=== PATIENT | male | born 1970 | race Caucasian/White ===

== ENCOUNTER → 2019-10-02 | Outpatient (CLI) | payer OTHER ==
--- NOTE | 2019-10-02 16:00 | XR ---
EXAMINATION TYPE: XR chest 2V DATE OF EXAM: 10/02/2019 COMPARISON: NONE HISTORY: Chest pain TECHNIQUE: Frontal and lateral views of the chest are obtained. FINDINGS: There is right hilar fullness. This likely reflect superimposed vasculature however consider CT of th e chest to exclude underlying nodule. No evidence for pneumothorax. No pleural effusion. The cardiac silhouette size is within normal limits. The osseous structures are grossly intact. IMPRESSION: 1. There is right hilar fullness. This likely reflect superimposed vasculature however consider CT o f the chest to exclude underlying nodule.
== END | disposition home or self-care (01) ==
LOC: RADXRMAIN 12:35
PROVIDERS: ATTEND Nurse Practitioner Family
DX: R91.8 Other nonspecific abnormal finding of lung field (principal)
CPT/HCPCS: 71046

== ENCOUNTER → 2019-10-10 | Outpatient (CLI) | payer OTHER ==
[2019-10-10 18:22] LABS: African American GFR (CKD) >90 (>60 ml/min/1.73 sqM); Blood Urea Nitrogen 16 mg/dL (9-20); Non-African American GFR(CKD) >90 (>60 ml/min/1.73 sqM)
--- NOTE | 2019-10-10 22:52 | CT ---
EXAMINATION TYPE: CT chest w con DATE OF EXAM: 10/10/2019 COMPARISON: Prior chest x-ray October 02, 2019. HISTORY: abnormal cxr CT DLP: 551 mGycm. Automated Exposure Control for Dose Reduction was Utilized. TECHNIQUE: CT scan of the thorax is performed following with IV Contrast, patient injected with 100 mL of Isovue 300. FINDINGS: LUNGS: Some focal linear scarring and/or atelectasis in the lingula just above the diaphragm along wi th the medial portion of left lung base. Subpleural 3 to 4 mm nodule right lower lobe axial image 43. Additional 3 to 4 mm right lower lobe nodule axial image 31. No suspicious greater than 4 mm nodules or masses with particular attention to the right hilum at the area of concern on recent x-ray. No pl eural effusion or pneumothorax. No consolidation. Tracheobronchial tree is patent. MEDIASTINUM: There are no greater than 1 cm hilar or mediastinal lymph nodes. No pericardial effus ion is seen. Prominent main pulmonary artery at 3.1 cm diameter exophytic [place] 24. CT finding may be reflective of underlying pulmonary artery hypertension. Tiny pericardial effusion. Moderate wall t hickening distal esophagus for reference axial image 45 could reflect product of poor distention, oth er etiologies including reflux esophagitis cannot be excluded. . Need to further investigate with di rect visualization or endoscopy should be based on clinical correlation. OTHER: Possible tiny gallstones and/or sludge in gallbladder near axial image 60. Spine is straighten ed on sagittal images. Liver is low dense relative to spleen suggesting mild diffuse fatty infiltrati on. IMPRESSION: No suspicious greater than 4 mm pulmonary nodules or masses. Other findings as noted danna pal
== END | disposition home or self-care (01) ==
LOC: RADCTMAIN 16:20
PROVIDERS: ATTEND Family Medicine
DX: R91.8 Other nonspecific abnormal finding of lung field (principal); R05 Cough; E11.9 Type 2 diabetes mellitus without complications; Z88.2 Allergy status to sulfonamides
CPT/HCPCS: 82565; 84520; 71260; 36415; Q9967

== ENCOUNTER → 2019-10-23 | Outpatient (CLI) | payer OTHER | END | disposition home or self-care (01) | DX: I08.3 Combined rheumatic disorders of mitral, aortic and tricuspid valves (principal) | CPT/HCPCS: 93306 ==

== ENCOUNTER → 2021-02-17 | Outpatient (CLI) | payer OTHER ==
[2021-02-17 14:39] LABS: Basophils # (A) 0.02 X 10*3/uL (0.00-0.10); Basophils % (A) 0.4 %; Eosinophils # (A) 0.12 X 10*3/uL (0.04-0.35); Eosinophils % (A) 2.2 %; HCT 45.8 % (39.6-50.0); HGB 14.9 g/dL (13.0-17.0); Lymphocytes # (A) 1.82 X 10*3/uL (0.90-5.00); Lymphocytes % (A) 33.3 %; MCH 29.2 pg (27.0-32.0); MCHC 32.5 g/dL (32.0-37.0); MCV 89.8 fL (80.0-97.0); Mean Platelet Volume 11.7 fL (9.5-12.2); Monocytes # (A) 0.63 X 10*3/uL (0.20-1.00); Monocytes % (A) 11.5 %; Neutrophils # (A) 2.87 X 10*3/uL (1.80-7.70); Neutrophils % (A) 52.4 %; Platelet Count 184 X 10*3/uL (140-440); WBC 5.47 X 10*3/uL (4.50-10.00)
[2021-02-17 14:53] LABS: African American GFR (CKD) 99.8 (60.0-200.0); Albumin 4.6 g/dL (3.80-4.90); Anion Gap 10.7 mmol/L (4.00-12.00); Calcium 9.1 mg/dL (8.7-10.3); Carbon Dioxide 23.3 mmol/L (21.6-31.8); Globulin 2.3 g/dL (1.6-3.3); LDL Cholesterol,Calculated 72.8 mg/dL (0.0-131.0); Magnesium 2.2 mg/dL (1.5-2.4); Non-African American GFR(CKD) 86.2 (60.0-200.0); Potassium 4.3 mmol/L (3.5-5.5); Total Bilirubin 0.6 mg/dL (0.3-1.2); Total Protein 6.9 g/dL (6.2-8.2); VLDL Calculation 29.2 mg/dL (5.00-40.00)
== END | disposition home or self-care (01) ==
LOC: LABWHC1 09:30
PROVIDERS: ATTEND Nurse Practitioner Adult Health
DX: E78.5 Hyperlipidemia, unspecified (principal); I10 Essential (primary) hypertension; R73.03 Prediabetes
CPT/HCPCS: 36415; 80053; 80061; 83036; 83735; 84443; 84481; 85025

== ENCOUNTER → 2021-05-01 | Outpatient (CLI) | payer OTHER ==
--- NOTE | 2021-05-01 16:23 | CONS ---
CONSULTATION DATE OF SERVICE: 05/01/2021 This 50-year-old gentleman has been evaluated in [facility] for possible obstructive sleep apnea-hypopnea syndrome. HISTORY OF PRESENT ILLNESS/SLEEP-WAKE EVALUATION: Patient's usual sleep schedule is from 9 or 10 p.m. until 9 or 10 a.m. on weekdays and until 4 a.m. on weekends. No problems with falling asleep, although he has a TV set in bedroom. He sleeps on the back and side positions with snoring. He wakes up from sleep 2 times with nocturia. No history of hypnagogic hallucinations, sleep paralysis or cataplexy. He denied any significant excessive daytime sleepiness. [place] Sleepiness Scale is zero. He does not take any naps. PAST MEDICAL HISTORY: Positive for hypertension, hyperlipidemia, back problems secondary to degenerative disc disease. PAST SURGICAL HISTORY: Bilateral knee surgery, hernia repair. FAMILY HISTORY: Positive for obstructive sleep apnea. MEDICATIONS: 1. Norvasc 5 mg once a day. 2. Lopid 500 mg once a day. 3. Atorvastatin 10 mg once a day. 4. [place] 1000 mg 3 times a day. SOCIAL HISTORY: Negative for smoking or using alcohol. REVIEW OF SYSTEMS: No fevers. No double vision. No recent chest pain. No shortness of breath. No abdominal pain. No bleeding episodes. No blood in the urine. No seizure episodes. Multiple awakenings from sleep, snoring. PHYSICAL EXAMINATION: GENERAL: Pleasant gentleman without distress. VITAL SIGNS: BP 135/79, HR 70, RR 15, height 5 feet 10-1/2 inches, weight 246 pounds, body mass index 34.7, afebrile. Oxygen saturation at room air 98%. HEENT: PERRLA, EOMI, evaluation of oropharynx showed tongue protrudes midline. Extremely low position of soft palate; Mallampati IV. NECK: Supple, no JVD. Thyroid is not palpable. Neck measures 19 inches in circumference. LUNGS: Clear to percussion and to auscultation. Good air exchange. No wheezing or rhonchi. HEART: S1, S2 regular. No murmurs, gallops, or rubs. ABDOMEN: Obese. EXTREMITIES: No clubbing or cyanosis. HOSPICE SPIRITUAL CARE COORDINATOR: Awake, alert, and oriented X3. Cranial nerves 2 to 7 intact. There is no fasciculation or atrophy. noted. No focal deficits observed. IMPRESSION: 1. Snoring, awakenings from sleep with nocturia, extremely low position of soft palate, Mallampati IV, wide neck at 19 inches in circumference; obstructive sleep apnea-hypopnea syndrome. 2. Obesity; body mass index 34.7. 3. Hypertension. 4. Hyperlipidemia. 5. Patient is on opioids, which may increase risk for central sleep apnea. 6. Back pain secondary to degenerated disc problems. 7. Status post bilateral knee surgery. 8. Status post hernia repair. PLAN: 1. Polysomnography for evaluation of patient's breathing during sleep. 2. CPAP/BiPAP titration if sleep study confirms obstructive sleep apnea-hypopnea syndrome. 3. Preferable position during sleep on the side. 4. No driving if patient feels any sleepiness. 5. I will see patient for follow up visit to explain results of testing and following plan. Thank you very much for referring this patient for consultation. Sincerely, Chai Arreola MD, PhD, FAASM Diplomat of [place] [employer] Sleep Medicine Board of [place] [employer] [facility] [place] MMODL / NEILN: [id number] /
== END ==
LOC: SLEEP 14:21
PROVIDERS: ATTEND Internal Medicine
DX: G47.33 Obstructive sleep apnea (adult) (pediatric) (principal); E66.9 Obesity, unspecified; I10 Essential (primary) hypertension; E78.5 Hyperlipidemia, unspecified; M51.36 Other intervertebral disc degeneration, lumbar region; Z68.34 Body mass index [BMI] 34.0-34.9, adult; Z98.890 Other specified postprocedural states; Z79.891 Long term (current) use of opiate analgesic; Z79.899 Other long term (current) drug therapy
CPT/HCPCS: 99211

== ENCOUNTER → 2021-09-03 | Outpatient (CLI) | payer OTHER ==
--- NOTE | 2021-09-04 05:18 | MR ---
EXAMINATION TYPE: MR wrist LT wo con DATE OF EXAM: 09/03/2021 COMPARISON: None HISTORY: Left hand/wrist pain x 2 mos, hyperextension injury. Multiplanar multiecho imaging of the left wrist was performed without contrast. Intercarpal joint spaces are fairly normal. There are small degenerative cysts in the lunate and the proximal scaphoid. There is no evidence of carpal bone fracture. The triangular cartilage appears int act. Radiocarpal joint appears fairly normal. The proximal metacarpals are intact. There is no eviden ce of a soft tissue mass. I see no evidence of fracture of the distal radius and ulna. There are smal l degenerative cysts in the capitate. Flexor tendons of the wrist appear intact. There is increased signal on the T2 images in large area of the trapezium with some narrowing of the first carpometacarpal joint space and mild edema in the adjacent first metacarpal. IMPRESSION: There are small degenerative cysts in the carpal bones. There is some edema in the proximal scaphoid and could relate to some arthritic development in the scaphoid lunate joint. No evidence of a fractur e. Increased signal in the trapezium with narrowing of the first carpometacarpal joint space that is con sistent with arthritic changes and possible bone bruise.
== END | disposition home or self-care (01) ==
LOC: RADMRIMAIN 19:58
PROVIDERS: ATTEND Orthopaedic Surgery
DX: M85.642 Other cyst of bone, left hand (principal)

== ENCOUNTER → 2023-02-04 | Outpatient (CLI) | payer OTHER ==
--- NOTE | 2023-02-04 08:23 | CT ---
EXAMINATION TYPE: CT chest wo con DATE OF EXAM: 02/04/2023 EXAMINATION TYPE: CT chest wo con DATE OF EXAM: 02/04/2023 COMPARISON: 10/10/2019 HISTORY: LUNG NODULE CT DLP: [address] of the chest was performed with lung and mediastinal window settings submitted. The la ck of contrast limits evaluation of the vascular, mediastinal and parenchymal structures including th e upper abdomen. LUNGS: The lungs are clear and free of infiltrate. No atelectasis. Scattered granulomas identified. No pulmonary nodule or mass is detected. No pleural effusion. No CT evidence of interstitial lung d isease. MEDIASTINUM/MARIELY: Thoracic aorta is of normal caliber with limited evaluation given lack of contrast . The heart is not enlarged. No evidence for mediastinal mass. No lymph nodes greater than 1cm. UPPER ABDOMEN: Cholelithiasis noted. OTHER: No significant other abnormality. IMPRESSION: 1. Scattered calcified granulomas noted. Evaluation of the lungs is otherwise unremarkable. 2. Cholelithiasis.
== END | disposition home or self-care (01) ==
LOC: RADCTMAIN 06:12
PROVIDERS: ATTEND Family Medicine
DX: K80.20 Calculus of gallbladder without cholecystitis without obstruction (principal); R91.1 Solitary pulmonary nodule; R05.3 Chronic cough
CPT/HCPCS: 71250